=== PATIENT | female | born 1930 | race Caucasian/White ===

== ENCOUNTER 2018-04-19 06:20 | Inpatient (IN) | payer MEDICARE ==
[2018-04-19 06:49] LABS: #Eosinphils 0.1 thou/uL (0.0-0.7); #Lymphocytes 0.6 thou/uL (1.20-3.40); #Monocytes 0.2 thou/uL (0.11-0.59); #Neutrophils 5.7 thou/uL (1.40-6.50); %Lymphocytes 8.8 % (21.0-51.0); %Neutrophils 86.2 % (42.0-75.0); Hemoglobin 11.7 g/dL (12.0-16.0); Mean Corpuscular HGB CONC 32.2 g/dL (32.0-36.0); Mean Corpuscular Hemoglobin 27.1 pg (27.0-31.0); Mean Platelet Volume 7.5 fL (7.4-10.4); Platelet Count 194 thou/uL (130-400); RBC Distribution Width 14.5 % (11.5-14.5); Red Blood Cell (RBC) Count 4.32 mill/uL (4.20-5.40); White Blood Cell (WBC) Count 6.6 thou/uL (4.8-10.8)
[2018-04-19 07:00] LABS: INR-International Normal Ratio 0.9; PTT 25.1 SEC (22.9-36.1); Prothrombin Time 12.4 SEC (12.0-14.7)
[2018-04-19 07:09] LABS: ALT (SGPT) 17 U/L (8-55); AST (SGOT) 20 U/L (5-34); Albumin 3.9 g/dL (3.4-4.8); Alkaline Phosphatase 110 U/L (40-150); Anion Gap 11 mmol/L (10-20); BUN (Urea Nitrogen) 32 mg/dL (9.8-20.1); Bilirubin, Total 0.3 mg/dL (0.2-1.2); Calc. Creatinine Clearance 0 mL/min (70-130); Calcium 9.3 mg/dL (7.8-10.44); Carbon Dioxide 26 mmol/L (23-31); Chloride 107 mmol/L (98-107); Estimated GFR-MDRD 51; Globulin 3.1 g/dL (2.4-3.5); Glucose 120 mg/dL (83-110); Potassium 4.8 mmol/L (3.5-5.1); Sodium 139 mmol/L (136-145)
[2018-04-19 07:14] LABS: CKMB 1.4 ng/mL (0-6.6); Troponin I Less than 0.010 ng/mL (< 0.028)
--- NOTE | 2018-04-19 07:38 | CT ---
CT BRAIN: HISTORY: Trauma. FINDINGS: Noncontrast-enhanced CT images of the brain are obtained from the base of the skull through the verte x. Brain and bone windows obtained. CT images brain demonstrate diffuse cortical atrophy and deep white matter ischemic changes. The lat eral and 3rd ventricles are enlarged. This is significant. Normal-pressure hydrocephalus cannot be excluded. Correlate with clinical exam. Extensive cortical atrophy is present. No significant evidence of subdural or epidural hematoma seen . No evidence of calvarial fracture is seen. No evidence of scalp hematoma seen. IMPRESSION: Cortical atrophy and deep white matter ischemic changes. POS: [facility]
--- NOTE | 2018-04-19 07:43 | CT ---
CT PELVIS NONCONTRAST: HISTORY: Fall. Pelvic injury. FINDINGS: Left hip prosthesis is in place. Subcapital fracture left hip with apex anterior and varus angulatio n. Impaction and shortening. Degenerative changes of the hip. Sacrum is intact. Lack of contrast on evaluation of soft tissues. Calcification throughout the arterial structures. IMPRESSION: 1. Subcapital fracture right hip. 2. Left hip prosthesis. 3. Atherosclerosis. POS: [facility]
--- NOTE | 2018-04-19 07:47 | CT ---
CT CERVICAL SPINE: HISTORY: Fall with neck pain. History of dementia. FINDINGS: Axial images are obtained with coronal and sagittal reconstructions. CT images cervical spine demonstrate bilateral distal common carotid artery calcifications. Numerous surgical clips seen in the thyroid bed. There is abnormal distention of the esophagus in the proximal thoracic region. The cervical spine alignment is within normal limits. Some mild disk space height loss with anterior and posterior osteophytes seen at C4-5 and C5-6. There is also mild to moderate bilateral C4-5 an C 5-6 neural foraminal narrowing. No evidence of acute cervical spine fracture is seen. IMPRESSION: No evidence of acute cervical spine fracture is seen. POS: [facility]
[2018-04-19 08:05] LABS: Bilirubin Negative (Negative); Blood, Urine Negative (Negative); Clarity CLOUDY (Clear); Glucose, Urine (Dipstick) Negative (Negative); Leukocyte Small (Negative); Nitrite Positive (Negative); Protein, Urine (Dipstick) Negative (Neg-Trace); Specific Gravity, Urine 1.019 (1.002-1.036); Urobilinogen 0.2 mg/dL (0.2-1.0)
[2018-04-19 08:08] LABS: Bacteria/HPF 4+ HPF (None Seen); Hyaline Casts/LPF 0-3 HYALINE CAST LPF (0-3 Hyaline); Pathc Cast-AUWi Flag 0.43 (0-2.49); RBC/HPF 0-3 HPF (0-3); Squamous Epithelial 0-3 HPF (0-3)
[2018-04-19 08:21] LABS: Sperm-AUWi Flag 409.5 (0-9.9); Yeast-AUWi Flag 677.7 (0-25.0)
--- NOTE | 2018-04-19 08:36 | RAD ---
TWO VIEWS RIGHT HIP: HISTORY: Fall. FINDINGS: AP and lateral views of the right hip are obtained. Two views right hip demonstrate an impacted displaced right femoral neck fracture. IMPRESSION: Right displaced and partially impacted femoral neck fracture. POS: [facility]
--- NOTE | 2018-04-19 08:51 | RAD ---
AP VIEW PELVIS: HISTORY: Fall. Right hip pain. FINDINGS: AP view pelvis was obtained. The patient has had a previous left hip arthroplasty. There is an acute new right femoral neck fracture. The rest of the pelvis is unremarkable. IMPRESSION: Acute right femoral neck fracture. POS: [facility]
[2018-04-19] MEDS ORDERED: Fentanyl 100 MCG/2 ML VIAL ONE ×3 (10:09→16:40)
[2018-04-19] MEDS ORDERED: Ondansetron ODT 4 MG TAB PO PRN (10:25)
[2018-04-19] MEDS ORDERED: Ondansetron HCl/PF 4 MG/2 ML Vial IVP PRN (10:25)
[2018-04-19] MEDS ORDERED: Dextrose 50% Abboject 50 ML SYRINGE SLOW IVP PRN (10:25)
[2018-04-19] MEDS ORDERED: Dextrose 5% in Water 1,000 ML IV PRN (10:25)
[2018-04-19] MEDS ORDERED: Nitrofurantoin Monohyd/M-Cryst 100 MG CAP PO SCH (10:45)
[2018-04-19] MEDS ORDERED: CEFAZOLIN/Water 2 GM/20 ML SYRINGE SLOW IVP SCH (11:00)
--- NOTE | 2018-04-19 11:11 | CON ---
DATE OF CONSULTATION: 04/19/2018 REQUESTING PHYSICIAN: Trauma Services CONSULTING PHYSICIAN: Patrick Platt M.D. REASON FOR CONSULTATION: Right hip fracture. HISTORY OF PRESENT ILLNESS: This is an 87-year-old female with a past medical history significant fo r dementia who presented to the emergency department today after a ground level fall at home. The pa tient was found by family members. She was currently under the care of her granddaughter. We have brandon fields consulted for her right hip fracture. Currently, at bedside family is present. They state that she has had dementia since approximately 2009. The majority of the history is obtained from family m embers at bedside. The patient does report pain to the right hip that is worse with movement and bet ter with rest. She denies any other complaints at the time of the fall. PAST MEDICAL HISTORY: Significant for hypertension, dementia, rheumatoid arthritis, thyroid cancer, COPD. PAST SURGICAL HISTORY: Significant for a right knee arthroplasty, left hip fracture with hemiarthrop lasty, lumbar surgery, thyroidectomy, lumpectomy, hysterectomy. SOCIAL HISTORY: The patient lives at home with 24-hour care including home sitters and family care. She is a former smoker. Family reports that the patient quit smoking approximately 3 months ago due to progressive dementia. She is a nondrinker. FAMILY HISTORY: Reviewed and noncontributory. PHYSICAL EXAMINATION: VITAL SIGNS: Blood pressure 135/65, pulse of 97, respiratory rate of 18, temperature 99.1. GENERAL: The patient is awake and alert. She is pleasant and cooperative with exam today. There is family present at bedside. HEENT: Head is normocephalic, atraumatic. NECK: Supple. Trachea is midline. Breathing is nonlabored. EXTREMITIES: The right lower extremity does not appear shortened or externally rotated at this time. There is mild tenderness to palpation in the hip region. SKIN: Intact, free of lesions and rashes. NEUROLOGIC: Patient is able to actively move both feet and digits in both feet. Distal neurovascula r status is intact bilateral lower extremities. Remainder of extremity examination is unremarkable f or other signs of injury. RADIOGRAPHIC FINDINGS: Including 2 views of the right hip and an AP pelvis show evidence of a femora l neck fracture at the base of the neck. This is displaced. There is evidence of a left hip hemiart hroplasty on the AP pelvis. LABORATORY DATA: Reviewed shows a CBC including white blood cell count of 6.6, hemoglobin of 11.7, h ematocrit 36.3 and platelet count of 194. PT 12.4 and INR of 0.9. ASSESSMENT AND PLAN: Right hip femoral neck fracture. PLAN: At this point, we have discussed surgical intervention with family in order to preserve anatom y and restore function. The family states that the patient normally ambulates with a cane. Occasion ally, she uses a wheelchair for long distances. She would like to begin walking again as soon as pos sible. Risks, benefits, and alternatives of surgery discussed at length. They are amenable to go fo rward with surgery. We will plan for surgical intervention this afternoon, however, the patient's la st dose of Plavix was yesterday morning. If we need to await surgery tomorrow we will plan for this. Patient will be admitted to Trauma Services at this time. All questions have been answered.
[2018-04-19 11:34] VITALS: BMI 25.4
[2018-04-19] MEDS: Acetaminophen 1,000 MG in Premix Bag 1 BAG IVPB SCH ×2 (12:03→19:28)
[2018-04-19] MEDS: Sodium Chloride 0.9% 1,000 ML IV SCH (12:03)
[2018-04-19] MEDS ORDERED: CEFAZOLIN/Water 2 GM/20 ML SYRINGE ONE (14:21)
[2018-04-19] MEDS ORDERED: Ondansetron HCl/PF 4 MG/2 ML Vial ONE (14:54)
[2018-04-19] MEDS ORDERED: Ketorolac Tromethamine 30 MG/ML VIAL ONE (14:54)
[2018-04-19] MEDS ORDERED: PROPOFOL 200 MG/20 ML VIAL ONE (14:54)
[2018-04-19] MEDS ORDERED: Lidocaine 1% PF 5 ML VIAL ONE (14:54)
[2018-04-19] MEDS ORDERED: ePHEDrine/0.9% NaCl/PF SYRINGE 50 mg/10 ml ONE (14:54)
--- NOTE | 2018-04-19 15:28 | HP ---
DATE OF ADMISSION: 04/19/2018 HISTORY OF PRESENT ILLNESS: Ms. Reis is an 87-year-old woman who has a history of senile dementia of Alzheimer's type although she is functionally independent. She lives in a mobile home which is n ext to her daughter's mobile home. According to the patient's daughter, she heard a thump and went t o check on her mother who apparently was trying to get to the bathroom using a cane. Mother reported had lost her balance and fell. She did not strike her head and suffered no loss of consciousness. The patient was complaining of some pain to her right hip. The patient's adult daughter activated [facility] and the patient was brought to the emergency department. Upon arrival Glasg ow coma scale was noted at E4 V4 M6 which is her baseline. She was complaining of severe right hip p ain. She otherwise was able to move all extremities and did follow commands. PAST MEDICAL HISTORY: Pertinent for senile dementia of Alzheimer's type, essential hypertension, thy roid cancer, rheumatoid arthritic disease, and COPD. SURGICAL HISTORY: Pertinent for a right total knee arthroplasty, left hip hemiarthroplasty, a total thyroidectomy, total abdominal hysterectomy, left breast lumpectomy, lumbar spinal fusion. SOCIAL HISTORY: The patient lives at home in the semi independently. She does have a sitter and is usually attended to by multiple family members. In fact, her daughter lives next to her. She has ov er a 98-xiww-foiz cigarette smoking history and does not smoke over the last 3-6 months. She has no ethanol or illicit drug abuse history. FAMILY HISTORY: Noncontributory for this patient's age. PREHOSPITALIZATION MEDICATIONS: Include calcium with vitamin D 1 tablet p.o. daily, aspirin 81 mg p. o. daily, folic acid 0.8 mg p.o. daily, Plavix 75 mg p.o. daily, furosemide 10 mg p.o. every other da y, levothyroxine 100 mcg p.o. daily, Pepcid 20 mg p.o. daily, atorvastatin 20 mg p.o. daily, donepezi l 5 mg p.o. daily, mirtazapine 30 mg p.o. daily. ALLERGIES: Patient has no known drug allergies. REVIEW OF SYSTEMS: A 10-point review of systems is essentially unremarkable except for as stated in past medical history and chief complaint. PHYSICAL EXAMINATION: GENERAL: This reveals an 87-year-old normally developed woman who is otherwise coherent and interact lindsay. She does have momentary lapses of memory and in fact does not give accurate history of the rece nt event. She appears to be in acute distress at the time of my evaluation. VITAL SIGNS: Currently reveals blood pressure 168/69, pulse is 96, respiratory rate is 22, temperatu re is 97.8 degrees Fahrenheit, oxygen saturation is 97% on 2 liters by nasal cannula oxygen. HEENT: Reveals normocephalic and atraumatic. Pupils are equal, round, and reactive to light and acc ommodation. Extraocular muscles are intact bilaterally. She has no sclerae icterus present. Oral m ucosa is pink and moist. No lesions are noted. NECK: Supple. No palpable lymphadenopathy or thyromegaly present. Cervical spine is nontender to p alpation, active or passive range of motion. HEART: Reveals regular rate and rhythm, no murmurs or gallops auscultated. LUNGS: Clear to auscultation bilaterally. Her breathing is regular and unlabored. ABDOMEN: Soft, nontender, nondistended. Bowel sounds in all four quadrants appear normoactive. Loreto er and spleen are nonpalpable below costal margin. EXTREMITIES: There are 2+ radial and pedal pulses bilaterally. No ankle edema is present. NEUROLOGIC: Cranial nerves II-XII grossly intact bilaterally. The patient has no focal neurologic d eficits present. MUSCULOSKELETAL: Reveals 5/5 muscle strength in bilateral upper and left lower extremities. Range o f motion about the right lower extremity is restricted due to painful right hip. PERTINENT LABORATORY FINDINGS: Today includes a CBC with 6600 white blood cells, hemoglobin and duke tocrit 11.7 and 36.3 respectively. Platelet count is 194,000. PTT and INR noted at 25.1 seconds and 0.9 respectively. Metabolic profile: Sodium 139, potassium is 4.8, chloride is 107, bicarbonate 26, BUN 32, creatinine is 1.03, glucose is 120, total bilirubin is 0.3, AST and ALT 20 and 17 respectively. Urinalysis is remarkable for 4+ bacteriuria. I have perso susie reviewed all radiographic studies do include a CT scan of the brain and cervical spine, which a re both unremarkable for any acute pathology. Pelvic x-ray followed by a CT scan of the pelvis is re markable for subcapital right femur fracture. IMPRESSION: 1. Status post ground level fall. 2. Subcapital right femoral neck fracture. 3. Acute qualitative platelet dysfunction secondary to Plavix intake. 4. Acute urinary tract infection. 5. History of senile dementia of Alzheimer's type. PLAN: 1. Orthopedic surgical consultation with Dr. Platt regarding the hip fracture. 2. We will initiate nonpharmacological VTE prophylaxis. 3. Initiate oral antibiotic therapy for uncomplicated urinary tract infection. 4. Initiate gastritis prophylaxis. Above findings and plan have been discussed with the patient and her family at bedside. They all ind icated understanding of information given. The patient and her family have given consent for this ad mission and proposed surgical intervention per Orthopedic Surgery.
[2018-04-19] MEDS ORDERED: Famotidine/PF 20 mg/2ml Vial ONE (15:33)
[2018-04-19] MEDS ORDERED: Meperidine HCl/PF 25 MG/ML VIAL SLOW IVP PRN (17:04)
[2018-04-19] MEDS ORDERED: Promethazine HCl 25 MG/ML VIAL SLOW IVP PRN (17:04)
[2018-04-19] MEDS ORDERED: Promethazine HCl 25 MG/ML VIAL IM PRN (17:04)
[2018-04-19] MEDS ORDERED: Acetaminophen/Codeine 30-300mg Tablet PO PRN ×2 (17:57)
[2018-04-19] MEDS ORDERED: traMADol HCl 50 MG TAB PO PRN (17:58)
[2018-04-19] MEDS ORDERED: Albuterol Sulfate 1.25 MG/3 ML NEB NEB SCH (18:30)
--- NOTE | 2018-04-19 19:02 | RAD ---
RIGHT HIP TWO VIEWS: 04/19/2018 HISTORY: Hip replacement. COMPARISON: 04/19/2018 FINDINGS: There have been interval post surgical changes related to placement of a right total hip prosthesis. No hardware complication is seen. There is no fracture or dislocation. Skin clips are seen lateral to the hip. Subcutaneous edema and emphysema are seen about the hip. IMPRESSION: Post surgical changes related to recent placement of right total hip prosthesis. POS: [facility]
--- NOTE | 2018-04-19 19:03 | RAD ---
LEFT HIP TWO VIEWS: 04/19/2018 HISTORY: Hip fracture. Postoperative. COMPARISON: AP view pelvis from 04/19/2018. FINDINGS: Again noted is a left total hip prosthesis. No hardware complication is appreciated on this exam. N o fracture or dislocation is seen. Phleboliths overly the pelvis. IMPRESSION: Left total hip prosthesis without evidence of an acute osseous abnormality. POS: [facility]
[2018-04-19] MEDS: Atorvastatin Calcium 20 MG TAB PO SCH (20:18)
[2018-04-19] MEDS: Mirtazapine 30 MG Soltab PO SCH (20:22)
[2018-04-19] MEDS: Donepezil HCl 5 MG TAB PO SCH (20:22)
[2018-04-19] MEDS: Sulfameth/Trimethoprim DS 800-160mg TAB PO SCH (20:22)
[2018-04-19] MEDS: CEFAZOLIN/Water 2 GM/20 ML SYRINGE SLOW IVP SCH (22:56)
[2018-04-20] MEDS: Ipratropium Bromide 2.5 ml Neb NEB SCH ×2 (00:11→06:00)
[2018-04-20] MEDS: Acetaminophen 1,000 MG in Premix Bag 1 BAG IVPB SCH ×3 (00:55→12:55)
--- NOTE | 2018-04-20 01:10 | OP ---
DATE OF SURGERY: 04/19/2018 PREOPERATIVE DIAGNOSIS: Right femoral neck fracture, displaced. POSTOPERATIVE DIAGNOSIS: Right femoral neck fracture, displaced. SURGICAL PROCEDURE: Right hip hemiarthroplasty. ANESTHESIA: General. SURGEON: Patrick Platt M.D. GIFT PACKER: Manan Nickerson PA-C. ESTIMATED BLOOD LOSS: 400 mL IMPLANTS: DePuy Barnes size 5 stem, a 28 x 47 bipolar cup and an Articul/Von +1.5 head. COMPLICATIONS: None. DRAINS: None. SPECIMEN: None. OUTCOME: Stable hemiarthroplasty with equal leg lengths. INDICATIONS: Ms. Reis is a pleasant 87-year-old lady status post ground-level fall sustaining a d isplaced femoral neck fracture. After discussion with patient as well as her family, we have decided to proceed with hemiarthroplasty. Informed consent has been obtained and I believe all questions elias ve been answered. PROCEDURE IN DETAIL: After the induction of general anesthesia, the patient was positioned in a left lateral decubitus position on the operating room table and then a sterile prep and drape was perform ed of the right lower extremity. Next, a curvilinear incision was made centered over the greater tro chanter. After skin was sharply incised, dissection was carried down through the fat to the underlyi ng tensor fascia and fascia gaston. This was then incised in line with skin incision and reflected ant eriorly and posteriorly revealing the greater trochanter and the trochanteric bursa. The bursa was s wept off of the short external rotators and then the piriformis superior and inferior gemelli and obt urator internus were rereleased off the posterior aspect of the proximal femur. These were tagged an d then reflected posteriorly to protect the sciatic nerve. Next, a T capsulotomy was performed and t his exposed the fracture. The femoral head was then removed with a corkscrew device and then sized t o a size 47. Next, an oscillating saw was used to make a femoral neck cut approximately 1 cm above t he lesser trochanter. Once performed, the proximal femur was further prepared first with a box chise l then followed by a canal finding, all of this was followed by a lateralizing reamer and then serial awls up to a size 6. Broaching was started at size 2 and continued up to size 5, which gave excelle nt fit and fill. At this point, the trial broach was left in place and a trial reduction was perform ed with a standard +1.5 head. The hip was then reduced. She was found to have equal leg lengths cli nically on the operating room table in excellent stability. As such, the hip was again dislocated an d then the trial components were removed from the proximal femur. Proximal femur was then irrigated with 3 liters normal saline with Pulsavac and then the final size 5 stem was inserted into the proxim al femur followed by application of the bipolar head. Again, the hip was reduced, found to have exce llent leg lengths and good stability. At this point in time, the capsule was then reapproximated wit h #2 Vicryl. This was followed by reattachment of the short external rotators with #2. A #1 Vicryl was then used for the fascia gaston and tensor fascia followed by 0 Vicryl for Antoni's fascia, 2-0 Damon ryl subcutaneously, and willie for the skin. A Xeroform gauze and tape dressing was applied to the lateral thigh and then patient was transferred to recovery room in stable condition. There were no c omplications and patient tolerated the procedure well.
[2018-04-20 05:45] LABS: #Eosinphils 0.1 thou/uL (0.0-0.7); #Lymphocytes 0.5 thou/uL (1.20-3.40); #Monocytes 0.2 thou/uL (0.11-0.59); #Neutrophils 3.7 thou/uL (1.40-6.50); %Basophils 0.2 % (0.0-1.0); %Eosinophils 2.1 % (0.0-10.0); %Lymphocytes 11.3 % (21.0-51.0); %Monocytes 3.9 % (0.0-10.0); %Neutrophils 82.6 % (42.0-75.0); Hemoglobin 8.7 g/dL (12.0-16.0); Mean Corpuscular Hemoglobin 26.5 pg (27.0-31.0); Mean Corpuscular Volume 85.5 fL (78.0-98.0); Mean Platelet Volume 7.6 fL (7.4-10.4); Platelet Count 143 thou/uL (130-400); RBC Distribution Width 14.3 % (11.5-14.5); Red Blood Cell (RBC) Count 3.27 mill/uL (4.20-5.40); White Blood Cell (WBC) Count 4.5 thou/uL (4.8-10.8)
[2018-04-20 06:08] LABS: Anion Gap 9 mmol/L (10-20); BUN (Urea Nitrogen) 24 mg/dL (9.8-20.1); Calc. Creatinine Clearance 57 mL/min (70-130); Calcium 7.8 mg/dL (7.8-10.44); Carbon Dioxide 25 mmol/L (23-31); Chloride 109 mmol/L (98-107); Estimated GFR-MDRD 63; Glucose 102 mg/dL (83-110); Magnesium 1.7 mg/dL (1.6-2.6); Phosphorus 3.2 mg/dL (2.3-4.7); Potassium 3.8 mmol/L (3.5-5.1); Sodium 139 mmol/L (136-145)
[2018-04-20] MEDS: CEFAZOLIN/Water 2 GM/20 ML SYRINGE SLOW IVP SCH (06:11)
[2018-04-20] MEDS: Levothyroxine Sodium 100 MCG TAB PO SCH (06:11)
[2018-04-20] MEDS: Famotidine 20 MG TAB PO SCH (11:00)
[2018-04-20] MEDS: Sulfameth/Trimethoprim DS 800-160mg TAB PO SCH ×2 (11:00→21:25)
[2018-04-20] MEDS: Folic Acid 1 MG TAB PO SCH (11:00)
[2018-04-20] MEDS: Calcium Carbonate + Vit D 250 MG TAB PO SCH (11:01)
[2018-04-20] MEDS: Furosemide 20 MG TAB PO SCH (11:02)
--- NOTE | 2018-04-20 14:02 | PRG-2 ---
DATE OF SERVICE: 04/20/2018 RESIDENT: Lashay Brown M.D. SUPERVISING ATTENDING: Dr. Erik Aguila SUBJECTIVE: The patient is resting comfortably in bed. The patient does not complain of any pain and is in no distress. The patient states she ate breakfast and tolerated it well. The patient has not yet been able to get out of bed to ambulate. The patient was cooperative and alert upon exam. Many family members at the bedside. PHYSICAL EXAMINATION: VITAL SIGNS: Temperature 98.1, pulse 72-100, respiratory rate 16, O2 saturation 95% on room air, BP 94/66. GENERAL: Elderly woman in no acute distress, coherent and interactive. CARDIOVASCULAR: Regular rate and rhythm, no murmurs or gallops. RESPIRATORY: Respirations symmetrical. Bilateral chest rise. ABDOMEN: Soft, nondistended. NEUROLOGIC: Nonfocal, 5/5 muscle strength in bilateral upper and left lower extremities, range of motion in right lower extremity restricted due to recent surgery. PSYCHIATRIC: Momentary lapse of remote and current memory, alert and oriented x2. LABORATORY DATA: WBC 4.5, hemoglobin 8.7, hematocrit 27.9, platelets 143, sodium 139, potassium 3.8, chloride 109, carbon dioxide 25, BUN 24, creatinine 0.85. ASSESSMENT AND PLAN: 1. Status post ground level fall. 2. Subcapital right femoral neck fracture status post hemiarthroplasty. 3. Acute qualitative platelet dysfunction secondary to Plavix intake. 4. Uncomplicated urinary tract infection. 5. History of senile dementia of Alzheimer's type. This is a pleasant 87-year-old female here for right femoral neck fracture after a fall. This is hospital day 2 and postop day #1. The patient went for surgery yesterday (04/19/2018) where they performed a right hip hemiarthroplasty by Dr. Platt. The patient tolerated the procedure well and returned to the room in good condition with no complications. The plan is for the patient to begin physical therapy today. The patient had not yet passed flatus or had a bowel movement on exam today. The patient is tolerating p.o. well. Smart and IV fluids were discontinued. Vital signs remained stable. Rehab screen in place for placement upon discharge. Pain is currently being controlled with Ultram p.r.n. The patient is also currently being treated with Bactrim for an uncomplicated UTI. The above findings and plan were discussed with the patient and her family at the bedside. They indicate understanding of the information given. The patient was seen and examined by Dr. Brown and GHAZAL Lloyd. The above plan was discussed with Dr. Aguila who is in agreement. We will continue to follow. [facility]
[2018-04-20] MEDS ORDERED: Lorazepam 1 MG TAB PO SCH (18:30)
[2018-04-20] MEDS ORDERED: Melatonin 3 MG TAB PO PRN (21:00)
[2018-04-20] MEDS: Sodium Chloride 0.9% 1,000 ML IV SCH (21:23)
[2018-04-20] MEDS: Mirtazapine 30 MG Soltab PO SCH (21:25)
[2018-04-20] MEDS: Atorvastatin Calcium 20 MG TAB PO SCH (21:25)
[2018-04-20] MEDS: Donepezil HCl 5 MG TAB PO SCH (21:25)
[2018-04-21] MEDS: Levothyroxine Sodium 100 MCG TAB PO SCH (06:04)
[2018-04-21] MEDS: traMADol HCl 50 MG TAB PO PRN (06:14)
[2018-04-21 06:43] LABS: Anion Gap 9 mmol/L (10-20); BUN (Urea Nitrogen) 19 mg/dL (9.8-20.1); Calc. Creatinine Clearance 58 mL/min (70-130); Calcium 7.6 mg/dL (7.8-10.44); Carbon Dioxide 22 mmol/L (23-31); Chloride 108 mmol/L (98-107); Estimated GFR-MDRD 65; Glucose 108 mg/dL (83-110); Potassium 3.7 mmol/L (3.5-5.1); Sodium 135 mmol/L (136-145)
[2018-04-21] MEDS ORDERED: Polyethylene Glycol 3350 17 GM Packet PO PRN (06:46)
[2018-04-21] MEDS ORDERED: Senokot 8.6 MG TAB PO PRN (06:47)
[2018-04-21] MEDS ORDERED: Aspirin 81 mg Enteric Coated Tablet PO SCH (09:00)
[2018-04-21] MEDS: Aspirin 81 mg Enteric Coated Tablet PO SCH ×2 (09:06→21:04)
[2018-04-21] MEDS: Sulfameth/Trimethoprim DS 800-160mg TAB PO SCH ×2 (09:06→21:05)
[2018-04-21] MEDS: Clopidogrel Bisulfate 75 MG TAB PO SCH (09:06)
[2018-04-21] MEDS: Calcium Carbonate + Vit D 250 MG TAB PO SCH (09:07)
[2018-04-21] MEDS: Folic Acid 1 MG TAB PO SCH (09:07)
[2018-04-21] MEDS: Famotidine 20 MG TAB PO SCH (09:07)
[2018-04-21 09:10] LABS: #Eosinphils 0.1 thou/uL (0.0-0.7); #Lymphocytes 0.8 thou/uL (1.20-3.40); #Monocytes 0.3 thou/uL (0.11-0.59); #Neutrophils 3.9 thou/uL (1.40-6.50); %Basophils 0.1 % (0.0-1.0); %Eosinophils 2.1 % (0.0-10.0); %Monocytes 6.2 % (0.0-10.0); %Neutrophils 75.6 % (42.0-75.0); Hemoglobin 7.7 g/dL (12.0-16.0); Mean Corpuscular HGB CONC 31.6 g/dL (32.0-36.0); Mean Corpuscular Volume 85.5 fL (78.0-98.0); Mean Platelet Volume 8.6 fL (7.4-10.4); Platelet Count 137 thou/uL (130-400); RBC Distribution Width 14.7 % (11.5-14.5); Red Blood Cell (RBC) Count 2.85 mill/uL (4.20-5.40); White Blood Cell (WBC) Count 5.2 thou/uL (4.8-10.8)
[2018-04-21] MEDS: Polyethylene Glycol 3350 17 GM Packet PO SCH (11:10)
--- NOTE | 2018-04-21 16:50 | PRG ---
DATE OF SERVICE: 04/21/2018 SUBJECTIVE: Ms. Reis is an 87-year-old woman with history of senile dementia of Alzheimer's type. The patient is post-injury day #2, status post ground level fall where she sustained a subcapital rig ht femoral neck fracture. She is postoperative day #2, status post right hip hemiarthroplasty. This morning, she is sleepy, but easily arousable, moves all extremities and answers questions and ba darshanine confused. She did tolerate diet for breakfast. OBJECTIVE: VITAL SIGNS: Today includes blood pressure 110/66, pulse 100, respiratory rate is 14, temperature 98 .2 degrees Fahrenheit. Oxygen saturation 92% on 2 liters by nasal cannula oxygen. HEENT: Reveals normocephalic and atraumatic. HEART: Reveals regular rate and rhythm, no murmurs or gallops auscultated. CHEST: Clear to auscultation bilaterally. Breathing is regular and unlabored. ABDOMEN: Soft, nontender, nondistended. EXTREMITIES: Reveals 2+ radial and pedal pulses bilaterally. No ankle edema is present. NEUROLOGIC: [place] Coma Scale is at baseline E4 M6 V4. She has no focal neurologic deficits presen t. LABORATORY DATA: Today includes a CBC with 5200 white blood cells, hemoglobin and hematocrit at 7.7 and 24.4 respectively. Platelet count 137,000. Metabolic profile: Sodium 135, potassium 3.7, chlor inga is 108, bicarbonate is 22, BUN is 19, creatinine is 0.83, glucose is 108. IMPRESSION: 1. Postoperative day #2, status post right hemiarthroplasty. 2. Acute blood loss anemia. 3. Stable senile dementia of Alzheimer's type. PLAN: Continue with physical and occupational therapy. The patient has been evaluated by case manag ement and referral has been made to chosen nursing home facility. The patient is certainly stable for discharge to a nursing home facility once bed becomes available. Above findings and plan dis cussed with the patient's family who indicates understanding of the information given. There is no i ndication for blood transfusion at this time. However, since there is a progressive drop in hemoglob in, we will repeat CBC in the morning to monitor for hemostasis.
[2018-04-21] MEDS: Bisacodyl 10 MG SUPP PR SCH (18:08)
[2018-04-21 18:38] LABS: Magnesium 1.8 mg/dL (1.6-2.6); Phosphorus 1.7 mg/dL (2.3-4.7)
[2018-04-21] MEDS: Atorvastatin Calcium 20 MG TAB PO SCH (21:04)
[2018-04-21] MEDS: Donepezil HCl 5 MG TAB PO SCH (21:04)
[2018-04-21] MEDS: Mirtazapine 30 MG Soltab PO SCH (21:05)
[2018-04-22] MEDS: Sodium Chloride 0.9% 1,000 ML IV SCH (02:06)
[2018-04-22] MEDS: Levothyroxine Sodium 100 MCG TAB PO SCH (06:03)
[2018-04-22 06:04] LABS: #Eosinphils 0.2 thou/uL (0.0-0.7); #Lymphocytes 0.8 thou/uL (1.20-3.40); #Monocytes 0.3 thou/uL (0.11-0.59); %Basophils 0.3 % (0.0-1.0); %Eosinophils 4.3 % (0.0-10.0); %Lymphocytes 17.8 % (21.0-51.0); %Monocytes 7.2 % (0.0-10.0); %Neutrophils 70.5 % (42.0-75.0); Hemoglobin 7.6 g/dL (12.0-16.0); Mean Corpuscular HGB CONC 31.7 g/dL (32.0-36.0); Mean Corpuscular Hemoglobin 26.6 pg (27.0-31.0); Mean Corpuscular Volume 83.8 fL (78.0-98.0); Mean Platelet Volume 7.6 fL (7.4-10.4); Platelet Count 139 thou/uL (130-400); RBC Distribution Width 14.5 % (11.5-14.5); Red Blood Cell (RBC) Count 2.85 mill/uL (4.20-5.40); White Blood Cell (WBC) Count 4.3 thou/uL (4.8-10.8)
[2018-04-22 06:31] LABS: Anion Gap 8 mmol/L (10-20); BUN (Urea Nitrogen) 15 mg/dL (9.8-20.1); Calc. Creatinine Clearance 62 mL/min (70-130); Calcium 7.6 mg/dL (7.8-10.44); Carbon Dioxide 25 mmol/L (23-31); Chloride 107 mmol/L (98-107); Estimated GFR-MDRD 70; Glucose 108 mg/dL (83-110); Magnesium 1.8 mg/dL (1.6-2.6); Potassium 3.9 mmol/L (3.5-5.1); Sodium 136 mmol/L (136-145)
[2018-04-22] MEDS: traMADol HCl 50 MG TAB PO PRN (08:54)
[2018-04-22] MEDS: Polyethylene Glycol 3350 17 GM Packet PO SCH (08:56)
[2018-04-22] MEDS: Calcium Carbonate + Vit D 250 MG TAB PO SCH (08:57)
[2018-04-22] MEDS: Folic Acid 1 MG TAB PO SCH (09:00)
[2018-04-22] MEDS ORDERED: Aspirin 81 mg Enteric Coated Tablet PO SCH (09:00)
[2018-04-22] MEDS ORDERED: Senokot 8.6 MG TAB PO SCH (09:00)
[2018-04-22] MEDS: Sulfameth/Trimethoprim DS 800-160mg TAB PO SCH (09:00)
[2018-04-22] MEDS: Clopidogrel Bisulfate 75 MG TAB PO SCH (09:00)
[2018-04-22] MEDS: Famotidine 20 MG TAB PO SCH (09:00)
[2018-04-22] MEDS: Bisacodyl 10 MG SUPP PR SCH (09:01)
[2018-04-22] MEDS: Furosemide 20 MG TAB PO SCH (09:01)
--- NOTE | 2018-04-22 10:03 | RAD ---
CHEST ONE VIEW: HISTORY: Dyspnea. FINDINGS: The cardiac silhouette is magnified and enlarged. The pulmonary vasculature is unremarkable. The me diastinum is midline with aortic calcification. Retrocardiac density may represent a hiatal hernia. Metallic clips over the thyroid bed. No lobar consolidation or evidence of pneumothorax. The lungs are hyperinflated. IMPRESSION: 1. Cardiomegaly. 2. Atherosclerosis. 3. Chronic obstructive pulmonary disease. 4. Probable hiatal hernia. POS: [facility]
[2018-04-22] MEDS ORDERED: Acetaminophen 500 MG TAB PO PRN (10:40)
[2018-04-22] MEDS ORDERED: Azithromycin 250 MG TAB PO SCH (10:45)
[2018-04-22 12:43] VITALS: BP 166/77; TEMP 98.7
--- NOTE | 2018-04-22 13:46 | PRG ---
EVENT NOTE DATE OF OCCURRENCE: 04/20/2018 EVENT: Patient was noted to have some agitation postoperatively and possibly sundowning, where she w as pulling out her IV lines and monitor lines. The patient was not unable to be redirected immediate ly by nursing staff, so in order to faciltate her sleep, melatonin was ordered, a one-time dose of A tivan p.r.n. per agitation and if need be at night she may have one dose of Seroquel. The following morning, it was reported that patient did well overnight with her one dose of Seroquel. The followin g night, she did not require any further medications.
[2018-04-22] MEDS ORDERED: traMADol HCl 50 MG TAB PO SCH (14:00)
[2018-04-22] MEDS ORDERED: Ferrous Sulfate 325 MG TAB PO SCH (17:00)
[2018-04-22] MEDS ORDERED: Ascorbic Acid 500 mg Chewable Tablet PO SCH (21:00)
--- NOTE | 2018-04-23 02:36 | DIS-2 ---
DATE OF ADMISSION: 04/19/2018 DATE OF DISCHARGE: 04/22/2018 RESIDENT: Lashay Brown MD SUPERVISING ATTENDING: Philippe Monae DO CONSULTS: Case management, PT/OT, Orthopedic Surgery. PROCEDURES: Right hip hemiarthroplasty on 04/19/2018. PRIMARY DIAGNOSIS: Right femoral neck fracture, displaced. SECONDARY DIAGNOSES: Senile dementia of Alzheimer's type, essential hypertension, thyroid cancer, rh eumatoid arthritis, and chronic obstructive pulmonary disease. DISCHARGE MEDICATIONS: 1. Azithromycin (Zithromax) 250 mg oral for 4 days. 2. Sulfamethoxazole/trimethoprim (Bactrim-DS) 1 tab oral twice daily. 3. Ultram 50 mg oral every 8 hours. 4. Incruse Ellipta 1 inhalation daily. 5. Albuterol sulfate 0.63 mg nebulizer 3 times daily. 6. Furosemide (Lasix) 10 mg oral every other day. 7. Folic acid 0.8 mg oral daily. 8. Famotidine (Pepcid) 20 mg oral daily. 9. Clopidogrel bisulfate 75 mg oral daily. DISCONTINUED MEDICATIONS: None. HISTORY OF PRESENT ILLNESS AND HOSPITAL COURSE: This is an 87-year-old female with history of senile dementia of Alzheimer's type, who gives post-injury day 3 from ground level fall where she sustained a subcapital right femoral neck fracture. She was also found to have UTI on admission that has been treated during the hospital stay and will continue outpatient. The patient is postop day 3 from rig ht hip arthroplasty. The patient tolerated the procedure well with no complications. The patient's pain has been controlled and she has been participating in PT/OT. The patient did require a 1 time d ose of Seroquel overnight as the patient was agitated and pulling out lines at that time. The patien t fevered overnight and a chest x-ray was ordered on 04/22/2018 that showed lower lobar infiltrate co nsistent with pneumonia. The patient was started on therapy for community-acquired pneumonia and pedro l continue this outpatient. The patient has been tolerating p.o., passing gas and has had a bowel mo vement. The patient will be going to a long term facility. On the day of discharge, the patie nt was seen and examined by Dr. Monae. A plan was discussed with Dr. Monae, the patient, and family at the bedside, who are in agreement. DISPOSITION: Stable. DISCHARGE INSTRUCTIONS: 1. Location: [facility]. 2. Diet: Regular. 3. Activity: As tolerated. 4. Follow up with Dr. Platt in 1-2 weeks.
--- NOTE | 2018-04-24 12:14 | EKG ---
Test Reason : Blood Pressure : / mmHG Vent. Rate : 102 BPM Atrial Rate : 102 BPM P-R Int : 210 ms QRS Dur : 074 ms QT Int : 346 ms P-R-T Axes : 074 062 080 degrees QTc Int : 450 ms Sinus tachycardia with 1st degree A-V block Possible Left atrial enlargement Low voltage QRS Abnormal ECG Confirmed by JERARDO HARRIS ([id number]), editor magazine BRENDON GARCIA ([id number]) on 04/24/2018 12:14:20 PM Referred By: Confirmed By:JERARDO HARRIS
== END 2018-04-22 15:50 | DRG 469 ==
LOC: ERS 06:20 → SJJU 11:24
PROVIDERS: ADMIT Surgery; ATTEND Surgery
PROC: 0SRR0JZ Replacement of Right Hip Joint, Femoral Surface with Synthetic Substitute, Open Approach (ICD-10-PCS; principal; 2018-04-19)
DX: S72.001A Fracture of unspecified part of neck of right femur, initial encounter for closed fracture (principal); J18.9 Pneumonia, unspecified organism; F05 Delirium due to known physiological condition; D62 Acute posthemorrhagic anemia; N39.0 Urinary tract infection, site not specified; I10 Essential (primary) hypertension; J44.9 Chronic obstructive pulmonary disease, unspecified; Z85.850 Personal history of malignant neoplasm of thyroid; G30.9 Alzheimer's disease, unspecified; F02.80 Dementia in other diseases classified elsewhere, unspecified severity, without behavioral disturbance, psychotic disturbance, mood disturbance, and anxiety; D69.1 Qualitative platelet defects; Z79.899 Other long term (current) drug therapy; Z79.02 Long term (current) use of antithrombotics/antiplatelets; M06.9 Rheumatoid arthritis, unspecified; Z79.82 Long term (current) use of aspirin; W18.30XA Fall on same level, unspecified, initial encounter; T45.525A Adverse effect of antithrombotic drugs, initial encounter
CPT/HCPCS: 36415; 51702; 70450; 71045; 72125; 72170; 72192; 80048; 80053; 81003; 81015; 82553; 83735; 84100; 84484; 85025; 85610; 85730; 86850; 86870; 86900; 86901; 86905; 86922; 87077; 87086; 87186; 90471; 90662; 93005; 93010; 94640; 96374; 96375; A4353; G0008; G8978-GP-CM; G8979-GP-CK; G8987-GO-CM; G8988-GO-CK; J0131; J1885; J2001; J2270; J2405; J2704; J3010; J7050; J7620; J7644; S0028

== ENCOUNTER 2019-08-20 20:33 | Inpatient (IN) | payer MEDICARE ==
[2019-08-20 21:10] LABS: Hemoglobin 13.4 g/dL (12.0-16.0); Mean Corpuscular HGB CONC 33.5 g/dL (32.0-36.0); Mean Corpuscular Hemoglobin 29.6 pg (27.0-31.0); Mean Corpuscular Volume 88.2 fL (78.0-98.0); Mean Platelet Volume 8.1 fL (7.4-10.4); Platelet Count 205 thou/uL (130-400); RBC Distribution Width 13.4 % (11.5-14.5); Red Blood Cell (RBC) Count 4.53 mill/uL (4.20-5.40)
[2019-08-20] MEDS ORDERED: methylPREDNISolone Sod Succ/PF 125 MG/2 ML VIAL ONE (21:16)
[2019-08-20 21:29] LABS: Band 14 % (5-11); Lymphocytes 5 % (21-51); MDiff Complete? YES; Monocytes 9 % (0-10); Neutrophil 72 % (42-75); Platelet Morphology Comment Appears Adequate; RBC Morphology Normal
--- NOTE | 2019-08-20 21:31 | RAD ---
Chest one view HISTORY: Dyspnea. COMPARISON: 04/22/2018. FINDINGS: Cardiac silhouette and pulmonary vasculature are unremarkable. Mediastinum is midline with aortic calcification. Postoperative changes of the thyroid bed are evident. Lungs are hyperinflated with flattening of each hemidiaphragm. No lobar consolidation or evidence of pneumothorax. groundwater monitoring technician leads overlie the chest. IMPRESSION: Pulmonary hyperinflation and other chronic-type findings are stable.
[2019-08-20 21:34] LABS: ALT (SGPT) 19 U/L (8-55); AST (SGOT) 27 U/L (5-34); Albumin 4.2 g/dL (3.4-4.8); Alkaline Phosphatase 108 U/L (40-110); Anion Gap 13 mmol/L (10-20); BUN (Urea Nitrogen) 28 mg/dL (9.8-20.1); Bilirubin, Total 0.4 mg/dL (0.2-1.2); Calc. Creatinine Clearance 0 mL/min (70-130); Calcium 9.6 mg/dL (7.8-10.44); Carbon Dioxide 26 mmol/L (23-31); Chloride 105 mmol/L (98-107); Estimated GFR-MDRD 49; Globulin 3.3 g/dL (2.4-3.5); Glucose 126 mg/dL (83-110); Potassium 4.4 mmol/L (3.5-5.1); Protein, Total 7.5 g/dL (6.0-8.3); Sodium 140 mmol/L (136-145)
[2019-08-20 21:44] LABS: Actual Bicarbonate (HCO3a) 21.8 mEq/L (22-28); Analyzer IN Cardio ER; Base Excess (BEa) -1.4 mEq/L (-2.0 to +3.0); CO2 Tension 32.6 mmHg (35.0-45.0); Carboxyhemoglobin (COHb) 0.5 gm% (0.0-3.0); Hemoglobin (Hb) 13.7 g/dL (12.0-16.0); O2 Tension (PaO2) 74.5 mmHg (> 60.0); pH, Arterial 7.44 (7.35-7.45)
[2019-08-20 21:45] LABS: Puncture Site RRA
[2019-08-21] MEDS ORDERED: Azithromycin 500 MG VIAL ONE (00:02)
[2019-08-21] MEDS ORDERED: Cefepime 1 GM VIAL ONE (00:02)
[2019-08-21 01:23] VITALS: BMI 25.6
[2019-08-21] MEDS ORDERED: Acetaminophen 325 MG TAB PO PRN (09:19)
--- NOTE | 2019-08-21 09:35 | PDOC.EVN ---
Event Note - Event Note Event Note: Patient's caregiver is her sangeetaece Mercedes [phone].
--- NOTE | 2019-08-21 10:10 | HP ---
Encounter Date: 08/21/19 CHIEF COMPLAINT: Shortness of breath. HISTORY OF PRESENT ILLNESS: This patient is an 89-year-old female, who presented to the emergency department with family, who indicated that the patient was having increased shortness of breath. The patient has dementia and is unable to give significant history. Apparently, the patient was having cough that was resulting in production of clear sputum and had some tachycardia with shortness of breath. Apparently, she presented initially to Urgent Care, where she had an O2 saturation of 84%. In the emergency department, the patient was noted to have saturations in the low 90s with the O2 saturation monitor on the finger. However, her granddaughter, who helps with some of this history indicates that when it was moved to her ER, her saturations were actually somewhat better. REVIEW OF SYSTEMS: Unobtainable due to the patient's dementia, although the patient's niece does not indicate any other issues. PAST MEDICAL HISTORY: Notable for COPD, dementia, thyroid cancer, unilateral carotid stenosis, history of hypertension although appears to be resolved and on no medications. She has hyperlipidemia, gastroesophageal reflux, and low iron. PAST SURGICAL HISTORY: Thyroidectomy, bilateral hip surgery, lumbar spine surgery, knee surgery, and lumpectomy. FAMILY HISTORY: Mother had lung cancer. She had a sister, who had a CVA. Elaine reports there are significant cancer within the family. SOCIAL HISTORY: The patient was a former smoker, quit about 1 year ago because the dementia simply made her forget about it. No alcohol. She is a . Her son is actually her medical power of regulatory attorney and her daughter would be the backup according to Elaine, who spoke with the family members last night. She is full code. Elaine reports that the patient lives with someone in her home with her 19/01. Elaine herself is there every other week. ALLERGIES: PENICILLAMINE, ADHESIVE TAPE. CURRENT MEDICATIONS: 1. Atorvastatin 20 mg at bedtime. 2. Aspirin 81 mg daily. 3. Albuterol nebulizer t.i.d. 4. Incruse Ellipta one inhalation daily. 5. Remeron 30 mg at bedtime. 6. Namenda 10 mg daily. 7. Levothyroxine 100 mcg daily. 8. Lasix 10 mg p.o. daily p.r.n. edema. 9. Folic acid 0.8 mg daily. 10. Pepcid 20 mg daily. 11. Aricept 5 mg at bedtime. 12. Plavix 75 mg daily. 13. Calcium plus D one p.o. daily. PHYSICAL EXAMINATION: VITAL SIGNS: Temperature 98.7, pulse 89, respirations 18, O2 saturation 94% on 2 L nasal cannula, and blood pressure is 155/88. GENERAL APPEARANCE: Age-appropriate female, who is in no distress. She is awake and alert, very pleasant. She tends to say "good to go." Frequently, the family reports this is her usual baseline. HEENT: PERRL. No OP lesions. NECK: Supple and symmetric. HEART: Regular rate and rhythm without murmurs, gallops, or rubs. LUNGS: Diminished with very slight diffuse expiratory wheezes, but with fair air exchange. ABDOMEN: Soft, nontender, and nondistended. Positive bowel sounds. No masses. No organomegaly. EXTREMITIES: No cyanosis, clubbing, or edema. NEUROLOGIC: The patient's cranial nerves are intact. She has normal movement of all extremities. PSYCH: The patient has underlying dementia and is responsive to questions, but remains with baseline confusion. LABORATORY DATA: White count 11.0, hemoglobins 13.4, platelets 205, bands 14%, lymphocytes 5%. ABG; pH of 7.44, pCO2 of 32.6, bicarb 21.8, and pO2 is 74.5. Sodium is 140, potassium is 4.5, chloride 105, CO2 is 26, BUN 28, creatinine 1.06, glucose 126, lactic acid 1.3, calcium 9.6, AST is 27, ALT is 19, and alkaline phosphatase 108. Troponin 0.01. BNP is 31.3. Albumin 4.2. IMAGING DATA: Chest x-ray shows pulmonary hyperinflation with some chronic changes with flattening of the diaphragm. Otherwise, no acute processes. IMPRESSION AND PLAN: 1. Acute hypoxic respiratory failure, likely due to chronic obstructive pulmonary disease exacerbation. The patient's saturations have varied a bit depending on location of the pulse oximeter. However, she had documented saturations at 84%. When presenting to the [facility]gent [facility], she remains on supplemental oxygen for now. We will continue to treat the underlying issues. 2. Chronic obstructive pulmonary disease exacerbation. We will continue with nebulizer treatments, steroids and given her leukocytosis with bandemia, we will go ahead and cover with some antibiotics now, especially in light of the fact that she did have a productive cough. I need to likely followup chest x-ray tomorrow as the patient apparently is eating chopped meats and crushed medications at home, so cannot take aspiration completely off the table. 3. Dementia, chronic baseline seems to be stable. 4. Hypertension. The patient has been on medications in the past, but according to her niece, these have been discontinued because every attempt to treat it caused her blood pressure to "bottom out.". 5. Hyperlipidemia. Continue with statin. 6. Gastroesophageal reflux. Continue with PPI or H2 antagonist. Job ID: [id number] [id number]
[2019-08-21] MEDS: cefTRIAXone\\ROCEPHIN 1 GM in Sodium Chloride 0.9% 100 ML IVPB SCH (11:42)
[2019-08-21] MEDS: methylPREDNISolone Sod Succ 40 MG VIAL IVP SCH ×3 (11:42→23:02)
[2019-08-21] MEDS: Ipratropium Bromide 2.5 ml Neb NEB SCH ×2 (12:34→19:05)
[2019-08-21] MEDS ORDERED: Donepezil HCl 5 MG TAB PO SCH (21:00)
[2019-08-21] MEDS ORDERED: Atorvastatin Calcium 20 MG TAB PO SCH (21:00)
[2019-08-21] MEDS ORDERED: Mirtazapine 30 MG Soltab PO SCH (21:00)
[2019-08-22] MEDS: Ipratropium Bromide 2.5 ml Neb NEB SCH ×3 (00:11→13:13)
[2019-08-22 05:03] LABS: #Lymphocytes 0.5 thou/uL (1.20-3.40); #Monocytes 0.2 thou/uL (0.11-0.59); #Neutrophils 8.2 thou/uL (1.40-6.50); %Eosinophils 0.4 % (0.0-10.0); %Lymphocytes 5.7 % (21.0-51.0); %Monocytes 1.9 % (0.0-10.0); %Neutrophils 92.1 % (42.0-75.0); Hemoglobin 11.9 g/dL (12.0-16.0); Mean Corpuscular HGB CONC 31.9 g/dL (32.0-36.0); Mean Corpuscular Hemoglobin 28.4 pg (27.0-31.0); Mean Platelet Volume 8.1 fL (7.4-10.4); Platelet Count 176 thou/uL (130-400); RBC Distribution Width 13.6 % (11.5-14.5); Red Blood Cell (RBC) Count 4.18 mill/uL (4.20-5.40); White Blood Cell (WBC) Count 8.9 thou/uL (4.8-10.8)
[2019-08-22 05:28] LABS: Anion Gap 12 mmol/L (10-20); BUN (Urea Nitrogen) 28 mg/dL (9.8-20.1); Calc. Creatinine Clearance 56 mL/min (70-130); Calcium 9.3 mg/dL (7.8-10.44); Carbon Dioxide 23 mmol/L (23-31); Chloride 109 mmol/L (98-107); Estimated GFR-MDRD 66; Glucose 136 mg/dL (83-110); Potassium 4.2 mmol/L (3.5-5.1); Sodium 140 mmol/L (136-145)
[2019-08-22] MEDS: methylPREDNISolone Sod Succ 40 MG VIAL IVP SCH ×2 (05:49→12:14)
[2019-08-22] MEDS ORDERED: Levothyroxine Sodium 100 MCG TAB PO SCH (06:00)
[2019-08-22] MEDS: cefTRIAXone\\ROCEPHIN 1 GM in Sodium Chloride 0.9% 100 ML IVPB SCH (08:56)
[2019-08-22] MEDS ORDERED: Enoxaparin Sodium 40 MG/0.4 ML SYRINGE SC SCH (09:00)
[2019-08-22] MEDS ORDERED: Clopidogrel Bisulfate 75 MG TAB PO SCH (09:00)
[2019-08-22] MEDS ORDERED: Famotidine 20 MG TAB PO SCH (09:00)
[2019-08-22] MEDS ORDERED: Aspirin 81 mg Enteric Coated Tablet PO SCH (09:00)
[2019-08-22] MEDS ORDERED: Calcium Carbonate + Vit D 250 MG TAB PO SCH (09:00)
[2019-08-22 16:31] VITALS: BP 132/62; TEMP 97.6
== END 2019-08-22 17:10 | disposition home or self-care (01) | DRG 189 ==
LOC: ERS 20:33 → SURG A 08-21 01:01
PROVIDERS: ADMIT Internal Medicine; ATTEND Internal Medicine
DX: J96.01 Acute respiratory failure with hypoxia (principal); J44.1 Chronic obstructive pulmonary disease with (acute) exacerbation; I10 Essential (primary) hypertension; E78.5 Hyperlipidemia, unspecified; M06.9 Rheumatoid arthritis, unspecified; K21.9 Gastro-esophageal reflux disease without esophagitis; E78.00 Pure hypercholesterolemia, unspecified; F03.90 Unspecified dementia, unspecified severity, without behavioral disturbance, psychotic disturbance, mood disturbance, and anxiety; Z96.641 Presence of right artificial hip joint; Z87.891 Personal history of nicotine dependence; Z79.890 Hormone replacement therapy; Z79.51 Long term (current) use of inhaled steroids; Z79.82 Long term (current) use of aspirin; Z79.899 Other long term (current) drug therapy; Z88.8 Allergy status to other drugs, medicaments and biological substances; Z91.048 Other nonmedicinal substance allergy status; Z79.02 Long term (current) use of antithrombotics/antiplatelets; Z85.850 Personal history of malignant neoplasm of thyroid
CPT/HCPCS: 36415; 71045; 80048; 80053; 82805; 83605; 83880; 84484; 85025; 87040; 93005; 94640; J0456; J0692; J0696; J1650; J2920; J2930; J3490; J7620

== ENCOUNTER 2020-09-27 17:12 | Inpatient (IN) | payer MEDICARE ==
[2020-09-27 20:01] LABS: #Eosinphils 0.2 thou/uL (0.0-0.7); #Monocytes 0.5 thou/uL (0.11-0.59); #Neutrophils 4.9 thou/uL (1.40-6.50); %Basophils 0.3 % (0.0-1.0); %Eosinophils 2.5 % (0.0-10.0); %Lymphocytes 15.5 % (21.0-51.0); %Monocytes 7.3 % (0.0-10.0); %Neutrophils 74.4 % (42.0-75.0); Mean Corpuscular HGB CONC 33.2 g/dL (32.0-36.0); Mean Corpuscular Hemoglobin 28.3 pg (27.0-31.0); Mean Corpuscular Volume 85.4 fL (78.0-98.0); Platelet Count 257 thou/uL (130-400); RBC Distribution Width 13.7 % (11.5-14.5); Red Blood Cell (RBC) Count 4.24 mill/uL (4.20-5.40); White Blood Cell (WBC) Count 6.6 thou/uL (4.8-10.8)
[2020-09-27 20:18] LABS: Anion Gap 11 mmol/L (10-20); BUN (Urea Nitrogen) 30 mg/dL (9.8-20.1); Calc. Creatinine Clearance 0 mL/min (70-130); Calcium 9.2 mg/dL (7.8-10.44); Carbon Dioxide 29 mmol/L (23-31); Chloride 104 mmol/L (98-107); Glucose 108 mg/dL (83-110); Potassium 4.3 mmol/L (3.5-5.1); Sodium 140 mmol/L (136-145)
[2020-09-27] MEDS: Famotidine 20 MG TAB PO SCH (20:38)
[2020-09-27] MEDS: Donepezil HCl 5 MG TAB PO SCH (20:38)
[2020-09-27] MEDS: Mirtazapine 30 MG TAB PO SCH (20:38)
[2020-09-27 22:46] VITALS: BMI 23.2
[2020-09-28 02:11] LABS: SARS-CoV-2 PCR by NAA Not Detected (NotDetected)
[2020-09-28] MEDS: Levothyroxine Sodium 112 MCG TAB PO SCH (05:37)
[2020-09-28] MEDS: Famotidine 20 MG TAB PO SCH ×2 (10:33→21:12)
[2020-09-28] MEDS ORDERED: Fentanyl 100 MCG/2 ML VIAL ONE ×2 (11:10→12:56)
[2020-09-28] MEDS ORDERED: Famotidine/PF 20 mg/2ml Vial ONE (11:26)
[2020-09-28] MEDS ORDERED: Lidocaine 1% PF 5 ML VIAL ONE (11:38)
[2020-09-28] MEDS ORDERED: Ondansetron PF 4 MG/2 ML Vial ONE (11:38)
[2020-09-28] MEDS ORDERED: PROPOFOL 200 MG/20 ML VIAL ONE (11:38)
[2020-09-28] MEDS ORDERED: Dexamethasone 20 MG/5 ML VIAL ONE (11:38)
[2020-09-28] MEDS ORDERED: Rocuronium Bromide 10 MG/ML (10ML VIAL) ONE (11:38)
[2020-09-28] MEDS ORDERED: Labetalol HCl 100 MG/20 ML VIAL ONE (11:38)
[2020-09-28] MEDS ORDERED: EPINEPHrine 1 MG/ML AMP ONE (12:17)
[2020-09-28] MEDS ORDERED: Bupivacaine 0.25% HCL 30 ML VIAL ONE (12:17)
[2020-09-28] MEDS ORDERED: SUGAMMADEX SODIUM 500 MG/5 ML VIAL ONE (12:41)
[2020-09-28] MEDS ORDERED: traMADol HCl 50 MG TAB PO PRN (12:44)
[2020-09-28 13:41] LABS: Fluid, Protein 4.7 g/dL (Not Available)
[2020-09-28 15:07] LABS: BF Color Yellow; Body Fluid Source Pleural Fluid; Clarity Hazy (Clear); Tube # EDTA
[2020-09-28 15:08] LABS: BF RBC Count - Manual 113 /cu.mm; BF WBC/Nonhematics Ct.-Manual 863 /cu.mm
[2020-09-28 15:13] LABS: Cell Count Non Hematic 28 %
[2020-09-28 15:14] LABS: BF Segmented Neutrophils 20 %; Lymphocytes 52 %
[2020-09-28] MEDS: Atorvastatin Calcium 20 MG TAB PO SCH (15:48)
[2020-09-28] MEDS: Donepezil HCl 5 MG TAB PO SCH (21:12)
[2020-09-28] MEDS: Mirtazapine 30 MG TAB PO SCH (21:12)
[2020-09-28] MEDS: Acetaminophen 325 MG TAB PO PRN (21:22)
[2020-09-29] MEDS: Levothyroxine Sodium 112 MCG TAB PO SCH (06:29)
[2020-09-29] MEDS: Atorvastatin Calcium 20 MG TAB PO SCH (08:42)
[2020-09-29] MEDS: Famotidine 20 MG TAB PO SCH ×2 (08:42→20:16)
[2020-09-29] MEDS: Acetaminophen 325 MG TAB PO PRN (16:45)
[2020-09-29] MEDS: Mirtazapine 30 MG TAB PO SCH (20:16)
[2020-09-29] MEDS: Donepezil HCl 5 MG TAB PO SCH (20:16)
[2020-09-30] MEDS: Levothyroxine Sodium 112 MCG TAB PO SCH (06:12)
[2020-09-30] MEDS ORDERED: Milk Of Magnesia 30 ML UDCUP PO PRN (09:12)
[2020-09-30] MEDS: Atorvastatin Calcium 20 MG TAB PO SCH (09:21)
[2020-09-30] MEDS: Famotidine 20 MG TAB PO SCH ×2 (09:21→19:58)
[2020-09-30] MEDS: Acetaminophen 325 MG TAB PO PRN (15:12)
[2020-09-30] MEDS: Mirtazapine 30 MG TAB PO SCH (19:58)
[2020-09-30] MEDS: Donepezil HCl 5 MG TAB PO SCH (19:58)
[2020-10-01] MEDS: Levothyroxine Sodium 112 MCG TAB PO SCH (05:48)
[2020-10-01 08:22] VITALS: BP 147/74; TEMP 98.2
[2020-10-01] MEDS: Famotidine 20 MG TAB PO SCH (08:25)
[2020-10-01] MEDS: Atorvastatin Calcium 20 MG TAB PO SCH (08:25)
== END 2020-10-01 10:25 | disposition home or self-care (01) | DRG 165 ==
LOC: T4-A 18:05
PROVIDERS: ADMIT Thoracic Surgery (Cardiothoracic Vascular Surgery); ATTEND Thoracic Surgery (Cardiothoracic Vascular Surgery)
PROC: 0BNL4ZZ Release Left Lung, Percutaneous Endoscopic Approach (ICD-10-PCS; principal; 2020-09-28)
PROC: 0W9B4ZX Drainage of Left Pleural Cavity, Percutaneous Endoscopic Approach, Diagnostic (ICD-10-PCS; 2020-09-28)
DX: J90 Pleural effusion, not elsewhere classified (principal); J44.9 Chronic obstructive pulmonary disease, unspecified; Z90.710 Acquired absence of both cervix and uterus; Z79.82 Long term (current) use of aspirin; Z79.02 Long term (current) use of antithrombotics/antiplatelets; Z88.6 Allergy status to analgesic agent; Z87.891 Personal history of nicotine dependence; R05 Cough
CPT/HCPCS: 36415; 71045; 71250; 80048; 82945; 83615; 84157; 85025; 85060; 87070; 87205; 87635; 88112; 88305; 89051; 93005; 93010; 94640; J0171; J1100; J1642; J2405; J2704; J3010; J7620; S0020; S0028; U0003; U0005

== ENCOUNTER 2020-10-04 13:08 | Outpatient (CLI) | payer MEDICARE | END 2020-10-04 13:09 | disposition home or self-care (01) | PROVIDERS: ATTEND Internal Medicine | DX: R13.13 Dysphagia, pharyngeal phase (principal); R63.3 Feeding difficulties; K21.9 Gastro-esophageal reflux disease without esophagitis | CPT/HCPCS: 74230 ==